=== PATIENT | female | born 1980 | race Caucasian/White ===

== ENCOUNTER 2021-11-11 23:38 | Emergency (ER) | payer SELFPAY ==
[2021-11-12 00:29] LABS: Urine Blood Trace-intact (Negative); Urine Glucose Negative (Negative); Urine Protein 3+ (Negative); Urine Specific Gravity >=1.030 (1.005-1.030); Urine pH 6.5 (5.0-7.0)
[2021-11-12] MEDS ORDERED: MORPHINE 4 MG/ML SYR ONE (00:34)
[2021-11-12] MEDS ORDERED: ONDANSETRON 4 MG/2 ML VIAL ONE (00:34)
[2021-11-12 00:55] LABS: Absolute Lymphocytes (CBC) 2.8 K/uL (0.7-4.9); Hematocrit 41.9 % (36.0-45.0); Lymphocytes % 22.8 % (15.3-44.8); MPV 8.4 fL (7.6-11.3); RBC Red Blood Cell Count 4.94 M/uL (3.86-4.86)
[2021-11-12 01:06] LABS: Albumin 3.4 g/dL (3.4-5.0); Bilirubin Total 0.3 mg/dL (0.2-1.0); Potassium 3.7 mmol/L (3.5-5.1)
--- NOTE | 2021-11-12 01:55 | ER ---
Nurse's Notes [facility] Name: Veronika Murrell Age: 41 yrs Sex: Female : 1980 Arrival Date: 11/11/2021 Time: 23:42 Bed 6 Private MD: Diagnosis: Kindey stones, mid and distal left ureter Presentation: 11/11 23:55 Chief complaint: Patient states: "Its my side, it has been on going for a while. I was tw5 at work and it went from not hurting to hurting, to hurting so bad that I threw up. It radiates to my back. Someone mentioned to me that it might be kidney stones.". Coronavirus screen: Vaccine status: Patient reports being unvaccinated. Ebola Screen: Patient negative for fever greater than or equal to 101.5 degrees Fahrenheit, and additional compatible Ebola Virus Disease symptoms Patient denies exposure to infectious person. Patient denies travel to an Ebola-affected area in the 21 days before illness onset. Initial Sepsis Screen: Does the patient meet any 2 criteria? No. Patient's initial sepsis screen is negative. Does the patient have a suspected source of infection? No. Patient's initial sepsis screen is negative. Risk Assessment: Do you want to hurt yourself or someone else? Patient reports no desire to harm self or others. Onset of symptoms was November 11, 2021 at 16:00. 23:55 Method Of Arrival: Ambulatory tw5 23:55 Acuity: MILLI 3 tw5 Triage Assessment: 23:57 General: Appears uncomfortable, obese, Behavior is calm, cooperative, appropriate for tw5 age. Pain: Complains of pain in left lower quadrant Pain radiates to left low back Pain currently is 10 out of 10 on a pain scale. GI: Reports nausea, vomiting. 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 Patient has never been vaccinated. - Social history:: Smoking status: Patient denies any tobacco usage or history of. Screenin/26 00:15 Abuse screen: Denies threats or abuse. Nutritional screening: No deficits noted. tw5 Tuberculosis screening: No symptoms or risk factors identified. Fall Risk Fall in past 12 months (25 points). No secondary diagnosis (0 pts). IV access (20 points). Ambulatory Aid- None/Bed Rest/Nurse Assist (0 pts). Gait- Normal/Bed Rest/Wheelchair (0 pts) Mental Status- Oriented to own ability (0 pts). Total Joe Fall Scale indicates No Risk (0-24 pts). Assessment: 00:15 General: Appears uncomfortable, Behavior is calm, cooperative. Pain: Complains of pain tw5 in left lower quadrant Pain radiates to left low back Pain currently is 10 out of 10 on a pain scale. Pain began On and off for past 6 months, pain started today at 6 PM Is episodic. GI: Abdomen is round non-distended, Reports nausea, vomiting, States "I vomited because the pain was so bad". Derm: Skin is pink, warm \\T\\ dry. Vital Signs: 11/11 23:55 Pulse 63; Resp 18; Temp 98(O); Pulse Ox 98% on R/A; Weight 109.32 kg; Height 5 ft. 4 tw5 in. (162.56 cm); Pain 10/10; 23:55 BP 173 / 115; tw5 11/12 00:23 BP 168 / 119; Pulse 64; Resp 17; Pulse Ox 98% on R/A; tw5 00:39 BP 141 / 85; Pulse 84; Resp 18; Pulse Ox 99% on R/A; tw5 02:39 BP 149 / 89; Pulse 68; Resp 16; Pulse Ox 98% on R/A; ll3 11/11 23:55 Body Mass Index 41.37 (109.32 kg, 162.56 cm) tw5 ED Course: 11/11 23:42 Patient arrived in ED. kz 23:57 Triage completed. tw5 23:57 Arm band placed on left wrist. tw5 11/12 00:04 Johnnie Montana MD is Attending Physician. kdr 00:15 Patient has correct armband on for positive identification. Bed in low position. Call tw5 light in reach. Side rails up X 1. 00:18 Inserted saline lock: 20 gauge in right antecubital area, using aseptic technique. tp1 Blood collected. 01:09 CT Stone Protocol In Process Unspecified. EDMS 02:07 Herminia Salmon, RN is Primary Nurse. ll3 02:38 No provider procedures requiring assistance completed. IV discontinued, intact, ll3 bleeding controlled, No redness/swelling at site. Pressure dressing applied. Administered Medications: 00:30 Drug: Zofran (Ondansetron) 4 mg Route: IVP; Site: right antecubital; tw5 00:56 Follow up: Response: No adverse reaction ll3 00:35 Drug: morphine 4 mg Route: IVP; Infused Over: 4 mins; Site: right antecubital; tw5 00:56 Follow up: Response: No adverse reaction; Marked relief of symptoms ll3 02:08 Drug: Rocephin - (cefTRIAXone) 1 grams Route: IVPB; Infused Over: 30 mins; Site: right ll3 antecubital; 02:40 Follow up: Response: No adverse reaction; IV Status: Completed infusion; IV Intake: [id number] Medication: 02:39 VIS not applicable for this client. ll3 Intake: 02:40 IV: 50ml; Total: 50ml. ll3 Outcome: 01:54 Discharge ordered by . kdr 02:38 Discharged to home ambulatory, with family. ll3 02:38 Condition: stable 02:38 Discharge instructions given to patient, family, Instructed on discharge instructions, follow up and referral plans. medication usage, Demonstrated understanding of instructions, follow-up care, medications, Prescriptions given X 4. 02:39 Patient left the ED. ll3 Addendum: 11/16/2021 07:30 Addendum: Culture Results: Positive urine culture. No further action required. Bacteria i w sensitive to prescribed antibiotic. Signatures: Dispatcher [employer] EDIL Johnnie Montana MD MD kdr Williams, Irene, RN RN iw Wood, Tiffany tw5 Herminia Salmon RN RN 3 Ilene Durbin 1 Sandra Peters
--- NOTE | 2021-11-12 01:55 | EDPHYS ---
Physician Documentation [facility] Name: Veronika Murrell Age: 41 yrs Sex: Female : 1980 Arrival Date: 11/11/2021 Time: 23:42 Bed 6 Private MD: ED Physician Johnnie Montana HPI: 11/12 01:50 This 41 yrs old Female presents to ER via Ambulatory with complaints of Flank Pain - kdr Left, Vomiting. 01:50 The patient complains of pain in the left mid back. left flank and groin. Onset: The kdr symptoms/episode began/occurred suddenly, just prior to arrival. Modifying factors: The symptoms are alleviated by nothing. the symptoms are aggravated by nothing. Severity of pain: At its worst the pain was moderate in the emergency department the pain has improved mildly. The patient has experienced similar episodes in the past, multiple times. The patient has not recently seen a physician. Patient has had intermittent left flank pain for over a year. She has not sought treatment prior to today.. 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 Patient has never been vaccinated. - Social history:: Smoking status: Patient denies any tobacco usage or history of. ROS: 11/12 01:50 Constitutional: Negative for fever, chills, and weight loss, Eyes: Negative for injury, kdr pain, redness, and discharge, Neck: Negative for injury, pain, and swelling, Cardiovascular: Negative for chest pain, palpitations, and edema, Respiratory: Negative for shortness of breath, cough, wheezing, and pleuritic chest pain, Abdomen/GI: Negative for abdominal pain, nausea, vomiting, diarrhea, and constipation, MS/Extremity: Negative for injury and deformity, Skin: Negative for injury, rash, and discoloration, Neuro: Negative for headache, weakness, numbness, tingling, and seizure activity. Psych: Negative for depression, anxiety, suicide ideation, homicidal ideation, and hallucinations, Allergy/Immunology: Negative for hives, rash, and allergies, Endocrine: Negative for neck swelling, polydipsia, polyuria, polyphagia, and marked weight changes, Hematologic/Lymphatic: Negative for swollen nodes, abnormal bleeding, and unusual bruising. Back: Positive for pain at rest, of the left mid back. Exam: 01:50 Constitutional: This is a well developed, well nourished patient who is awake, alert, kdr and in no acute distress. Head/Face: Normocephalic, atraumatic. Eyes: Pupils equal round and reactive to light, extra-ocular motions intact. Lids and lashes normal. Conjunctiva and sclera are non-icteric and not injected. Cornea within normal limits. Periorbital areas with no swelling, redness, or edema. Neck: Trachea midline, no thyromegaly or masses palpated, and no cervical lymphadenopathy. Supple, full range of motion without nuchal rigidity, or vertebral point tenderness. No Meningismus. Chest/axilla: Normal chest wall appearance and motion. Nontender with no deformity. No lesions are appreciated. Cardiovascular: Regular rate and rhythm with a normal S1 and S2. No gallops, murmurs, or rubs. Normal PMI, no JVD. No pulse deficits. Respiratory: Lungs have equal breath sounds bilaterally, clear to auscultation and percussion. No rales, rhonchi or wheezes noted. No increased work of breathing, no retractions or nasal flaring. Back: No spinal tenderness. No costovertebral tenderness. Full range of motion. Skin: Warm, dry with normal turgor. Normal color with no rashes, no lesions, and no evidence of cellulitis. MS/ Extremity: Pulses equal, no cyanosis. Neurovascular intact. Full, normal range of motion. Neuro: Awake and alert, GCS 15, oriented to person, place, time, and situation. Cranial nerves II-XII grossly intact. Motor strength 5/5 in all extremities. Sensory grossly intact. Cerebellar exam normal. Normal gait. Psych: Awake, alert, with orientation to person, place and time. Behavior, mood, and affect are within normal limits. 01:50 Abdomen/GI: Inspection: abdomen appears normal, obese Bowel sounds: normal, Palpation: soft, mild abdominal tenderness, in the posterior aspect of right lateral abdomen, anterior aspect of right lateral abdomen and right lower quadrant. Vital Signs: 11/11 23:55 Pulse 63; Resp 18; Temp 98(O); Pulse Ox 98% on R/A; Weight 109.32 kg; Height 5 ft. 4 tw5 in. (162.56 cm); Pain 10/10; 23:55 BP 173 / 115; tw5 11/12 00:23 BP 168 / 119; Pulse 64; Resp 17; Pulse Ox 98% on R/A; tw5 00:39 BP 141 / 85; Pulse 84; Resp 18; Pulse Ox 99% on R/A; tw5 02:39 BP 149 / 89; Pulse 68; Resp 16; Pulse Ox 98% on R/A; ll3 11/11 23:55 Body Mass Index 41.37 (109.32 kg, 162.56 cm) tw5 MDM: 01:50 Data reviewed: vital signs, nurses notes, lab test result(s), radiologic studies. kdr Counseling: I had a detailed discussion with the patient and/or guardian regarding: the historical points, exam findings, and any diagnostic results supporting the discharge/admit diagnosis, lab results, radiology results, the need for outpatient follow up. 01:54 Patient medically screened. [facility] 11/12 00:15 Order name: CBC with Diff; Complete Time: 01:37 kdr 11/12 00:15 Order name: CMP; Complete Time: 01:37 kdr 11/12 00:15 Order name: Lipase; Complete Time: 01:37 kdr 11/12 00:29 Order name: Urine Dipstick-Ancillary; Complete Time: 01:37 [facility] 11/12 00:55 Order name: Urine Microscopic Only ll3 11/12 00:15 Order name: IV Saline Lock; Complete Time: 00:15 kdr 11/12 00:15 Order name: Labs collected and sent; Complete Time: 00:15 kdr 11/12 00:15 Order name: Urine Dipstick-Ancillary (obtain specimen); Complete Time: 00:23 kdr 11/12 00:24 Order name: CT Stone Protocol kdr 11/12 02:22 Order name: Urine Culture EDDC 11/12 00:15 Order name: Urine Test (obtain specimen); Complete Time: 00:23 kdr Administered Medications: 00:30 Drug: Zofran (Ondansetron) 4 mg Route: IVP; Site: right antecubital; tw5 00:56 Follow up: Response: No adverse reaction ll3 00:35 Drug: morphine 4 mg Route: IVP; Infused Over: 4 mins; Site: right antecubital; tw5 00:56 Follow up: Response: No adverse reaction; Marked relief of symptoms ll3 02:08 Drug: Rocephin - (cefTRIAXone) 1 grams Route: IVPB; Infused Over: 30 mins; Site: right ll3 antecubital; 02:40 Follow up: Response: No adverse reaction; IV Status: Completed infusion; IV Intake: [id number] Disposition Summary: 11/12/21 01:54 Discharge Ordered Location: Home kdr Problem: an acute exacerbation kdr Symptoms: have improved kdr Condition: Stable kdr Diagnosis - Kindey stones, mid and distal left ureter kdr Followup: kdr - With: Private Physician - When: 2 - 3 days - Reason: If symptoms return, Further diagnostic work-up, Recheck today's complaints, Continuance of care, Re-evaluation by your physician Discharge Instructions: - Discharge Summary Sheet kdr - Kidney Stones, [id number] kdr Forms: - Medication Reconciliation Form kdr - Thank You Letter kdr - Antibiotic Education kdr - Prescription Opioid Use kdr Prescriptions: - Zofran 4 mg Oral Tablet - take 1 tablet by ORAL route every 12 hours As needed; 6 tablet; Refills: 0, kdr Product Selection Permitted - Tramadol 50 mg Oral Tablet - take 1 tablet by ORAL route every 8 hours as needed; 12 tablet; Refills: 0, kdr Product Selection Permitted - Bactrim DS 800-160 mg Oral Tablet - take 1 tablet by ORAL route every 12 hours for 3 days; 6 tablet; Refills: 0, kdr Product Selection Permitted - Flomax 0.4 mg Oral capsule - take 1 capsule by ORAL route once daily 1/2 hour following the same meal each kdr day; 10 capsule; Refills: 0, Product Selection Permitted Signatures: Dispatcher [employer] Johnnie Saenz MD MD kdr Ilene Blank tw5 Herminia Salmon RN RN ll3
[2021-11-12] MEDS ORDERED: NA CHLORIDE 0.9% 50 ML ONE (02:10)
[2021-11-12] MEDS ORDERED: CEFTRIAXONE 1000 MG/VIAL ONE (02:10)
[2021-11-12 02:19] LABS: Urine Bacteria 20-50 /HPF (<20); Urine RBC <5 /HPF (NONE SEEN)
[2021-11-12 02:48] VITALS: TEMP 98
[2021-11-12 02:52] VITALS: BP 149/89; O2SAT 98
--- NOTE | 2021-11-12 10:35 | RAD REPORT ---
EXAM DESCRIPTION: Stone Protocol 11/12/2021 1:24 AM CDT CLINICAL HISTORY: 41 years, Female, Flank pain, kidney stone suspected COMPARISON: None. TECHNIQUE: Multiple transaxial tomograms of the abdomen and pelvis were performed from the lung base s to the symphysis pubis 3 mm slice thickness at 3 mm interval reconstruction, without administration of IV and oral contrast. Multiplanar reformats in the sagittal and coronal plane were generated and reviewed. This exam was performed according to our departmental dose-optimization protocol, which includes auto mated exposure control, adjustment of the mA and/or kV according to patient size and/or use of iterat micah reconstruction technique. FINDINGS: The lack of IV and oral contrast limits evaluation of solid organs, subtle lesions cannot be excluded. The lung bases demonstrated presence of a posterior segment right lower lobe pulmonary nodule measuri ng 4 mm on image 3. Grossly the unopacified liver, pancreas, spleen and adrenal glands demonstrate to be within normal li mits, no significant focal lesions were identified. The gallbladder demonstrated presence of rim round densities within the fundus corresponding to cassandra lithiasis. No significant pericholecystic fluid/or wall thickening The left kidney is atrophic with findings suggesting duplex calyceal system. Several tiny obstructive calculi are identified within the mid/distal portion of the left ureter measuring 2 mm on image 79, 2.2 mm on image 95, 2.4 mm on image 120 image 94 and image 120. Tiny calculi are identified within th e left UVJ area measuring by 5.2 mm and 3.1 mm on axial image 150. The right kidney demonstrate to be unremarkable. There is no evidence for right hydronephrosis/or rig ht hydroureter. Grossly the unopacified stomach, small bowel and large bowel demonstrate to be within normal limits. There is no evidence for bowel dilatation/or free air. The appendix is normal. The urinary bladder demonstrate to be within normal limits. The uterus demonstrate to be within dhara l limits. No adnexal masses are identified. The aorta demonstrate to be within normal limits. There is no retroperitoneal lymphadenopathy. There is no evidence for ascites. The rest of the soft tiss ue demonstrate to be grossly unremarkable. 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 Several tiny obstructive calculi are identified within the mid/distal portion of the left ureter prem uring 2 mm. Tiny calculi are identified within the left UVJ area measuring by 5.2 mm and 3.1 mm. Cholelithiasis. 4 mm right solid pulmonary nodule. No routine follow-up imaging is recommended per Fleischner Society Guidelines. Electronically signed by: Axel Tejeda MD 11/12/2021 1:29 AM CDT Due to temporary technical issues with the PACS/Fluency reporting system, reports are being signed by the in house radiologist without review as a courtesy to ensure prompt reporting. The interpreting r adiologist is fully responsible for the content of the report.
== END 2021-11-12 02:39 | disposition home or self-care (01) ==
LOC: ER 23:38
DX: N20.2 Calculus of kidney with calculus of ureter (principal)
CPT/HCPCS: 36415; 74176; 76377; 80053; 81003; 81015; 83690; 85025; 87077; 87086; 87088; 87186; 96365; 96375; 99284; J2405

== ENCOUNTER 2022-04-12 14:38 | Emergency (ER) | payer SELFPAY ==
--- OUTSIDE RECORDS SUMMARY | 2022-04-12 14:44 | XMS REPORT | Continuity of Care Document ---
:1980 Author Organization [facility] t Address [address] [place] [address] Care Team Providers Name Role Phone Unavailable Unavailable Unavailable Problems This patient has no known problems. Allergies, Adverse Reactions, Alerts This patient has no known allergies or adverse reactions. Medications This patient has no known medications. Procedures This patient has no known procedures. Encounters Start End Encounter Admission Attending Care Care Encounter Source Date/Time Date/Time Type Type Clinicians Facility Department ID 2022-04-07 2022-04-07 Outpatient [facility] [id number] 11:06:05 11:06:05 [id number] [address] [place] Results Test Description Test Time Test Comments Results Result Comments Source HEMOGLOBIN A1c 2022-04-08 09:59:32 Test Item Value Reference Range Interpretation Comme nts HEMOGLOBIN A1c (test code = 04922) 5.5 % 4.2-5.6 CBC W/AUTO DIFF WITH [id number] 09:09:21 Test Item Value Reference Range Interpretation Comments WBC (test code = 7.5 K/UL 3.5-11.0 1001) RBC (test code = 4.74 M/UL 3.80-5.40 1002) HEMOGLOBIN (test code 13.0 G/DL 11.5-15.5 = 1003) HEMATOCRIT (test code 40.6 % 34.0-45.0 = 1004) MCV (test code = 85.7 fL 80.0-99.0 1005) MCH (test code = 27.4 PG 25.0-33.0 1006) MCHC (test code = 32.0 G/DL 31.0-36.0 1007) RDW (test code = 14.5 % 11.5-15.0 1038) NEUTROPHILS (test 60.9 % code = 1008) LYMPHOCYTES (test 31.1 % code = 1010) MONOCYTES (test code 4.8 % = 1011) EOSINOPHILS (test 2.1 % code = 1012) BASOPHILS (test code 0.8 % = 1013) IMMATURE GRANULOCYTES 0.3 % (test code = 1036) NUCLEATED RBCS (test 0.0 /100 WBC'S See_Comment [Aut omated code = 1065) message] The sy stem which generated this result transmitted reference range : 0.0. The refere nce range was not u sed to interpret th is result as normal/abnormal . PLATELET COUNT (test 326 K/UL 130-400 code = 1015) ABSOLUTE NEUTROPHILS 4.57 K/UL 1.50-7.50 (test code = 1066) ABSOLUTE LYMPHOCYTES 2.33 K/UL 1.00-4.00 (test code = 1067) ABSOLUTE MONOCYTES 0.36 K/UL 0.20-1.00 (test code = 1068) ABSOLUTE EOSINOPHILS 0.16 K/UL 0.00-0.50 (test code = 1040) ABSOLUTE BASOPHILS 0.06 K/UL 0.00-0.20 (test code = 1069) ABS IMMATURE 0.02 K/UL 0.00-0.10 GRANULOCYTES (test code = 1020) ABS NUCLEATED RBCS 0.00 K/UL 0.00-0.11 (test code = 43027) TSH, THIRD [id number] 03:51:20 Test Item Value Reference Range Interpretation Comments TSH, THIRD 3.900 UIU/ML 0.400-4.100 UNLESS OTHERW ISE GENERATION (test INDICATED, ALL TESTING code = 2821) PERFORMED [facility], [facility]. [address] [place] [id number] [place] [address] DIRECTOR: JOSIAS ALBERTS M.D. CLIA NUMBER [id number] CAP ACCREDITATION N O. [id number] LIPID [id number] 03:01:04 Test Item Value Reference Range Interpretation Comments CHOLESTEROL (test 167 MG/DL <200 code = 2210) TRIGLYCERIDES (test 137 MG/DL <150 code = 2232) HDL CHOLESTEROL (test 44 MG/DL >39 code = 2220) CALC LDL CHOL (test 99 MG/DL <100 NOTE: C ALCULATED LDL code = 2237) IS BASED ON GIAN-HUNTER METHOD WHICHINCLUDES ADJUSTABLE TRIGLYCERIDE:VL DL CHOLESTEROL RAT IO.THIS FACTOR VARIES B Y MEASURED TRIGLY CERIDE AND NON-HDLCHOL ESTEROL CONCENTRATIONS WITH INCREASED CALCU LATED LDL SEENIN HIGH ER TRIGLYCERIDE OR LOWER NON-HDL SPECIME NS. FOR MOREINFORMATION , SEE CLIENT ANNOUNCE MENT AT [email or web address] LDL/HDL 2.25 RATIO <3.22 (test code = 2238) COMPREHENSIVE METABOLIC [id number] 03:01:04 Test Item Value Reference Range Interpretation Comments GLUCOSE (test code = 94 MG/DL 70-99 2216) BUN (test code = 9 MG/DL 6-20 2207) CREATININE (test 1.04 MG/DL 0.60-1.30 code = 2214) eGFR (2020 CKD-EPI) 69 ML/MIN/1.73 >60 (test code = 50194) CALC BUN/CREAT (test 9 RATIO 6-28 code = 2235) SODIUM (test code = 143 MEQ/L 930-405 2424) POTASSIUM (test code 4.3 MEQ/L 3.5-5.4 = 2227) CHLORIDE (test code 106 MEQ/L 95-107 = 2215) CARBON DIOXIDE (test 26 MEQ/L 19-31 code = 2206) CALCIUM (test code = 9.3 MG/DL 8.5-10.5 2208) PROTEIN, TOTAL (test 6.9 G/DL 6.1-8.3 code = 2229) ALBUMIN (test code = 3.8 G/DL 3.5-5.2 2200) CALC GLOBULIN (test 3.1 G/DL 1.9-3.7 code = 2240) CALC A/G RATIO (test 1.2 RATIO 1.0-2.6 code = 2234) BILIRUBIN, TOTAL 0.4 MG/DL See_Comment [Automated message] (test code = 2207) The syste m which generated this result transmit terry reference range : <=1.2. The refe rence range was not u sed to interpret th is result as normal/abnormal . ALKALINE PHOSPHATASE 113 U/L 40-113 (test code = 2204) AST (test code = 18 U/L 9-40 2217) ALT (test code = 17 U/L 5-40 2218) TSH, THIRD [id number] 04:03:09 Test Item Value Reference Range Interpretation Comments TSH, THIRD GENERATION (test code 5.130 UIU/ML 0.400-4.100 H = 2821) FREE T4 (THYROXINE)2021-12-19 04:03:09 Test Item Value Reference Range Interpretation Comments FREE T4 1.21 NG/DL 0.80-1.90 UNLESS OTHERWI SE (THYROXINE) (test INDICATED, ALL TESTING code = 2823) PERFORMED [facility] [place], [facility]. [address] [place] [id number] [address]AN DIRECTOR: JOSIAS ALBERTS M.D. CLIA NUMBER [id number] CAP ACCREDITATION N O. [id number] TSH, THIRD [id number] 05:50:30 Test Item Value Reference Range Interpretation Comments TSH, THIRD 5.600 UIU/ML 0.400-4.100 H UNLESS OTHERWI SE GENERATION (test INDICATED, ALL TESTING code = 2821) PERFORMED [facility], [facility] [address] [place] [id number] [address]AN DIRECTOR: JOSIAS ALBERTS M.D. CLIA NUMBER [id number] CAP ACCREDITATION N O. [id number] LIPID [id number] 05:44:10 Test Item Value Reference Range Interpretation Comments CHOLESTEROL (test 163 MG/DL <200 code = 2210) TRIGLYCERIDES (test 109 MG/DL <150 code = 2232) HDL CHOLESTEROL (test 43 MG/DL >39 code = 2220) CALC LDL CHOL (test 99 MG/DL <100 NOTE: C ALCULATED LDL code = 2237) IS BASED ON GIAN-HUNTER METHOD WHICHINCLUDES ADJUSTABLE TRIGLYCERIDE:VL DL CHOLESTEROL RAT IO.THIS FACTOR VARIES B Y MEASURED TRIGLY CERIDE AND NON-HDLCHOL ESTEROL CONCENTRATIONS WITH INCREASED CALCU LATED LDL SEENIN HIGH ER TRIGLYCERIDE OR LOWER NON-HDL SPECIME NS. FOR MOREINFORMATION , SEE CLIENT ANNOUNCE MENT AT [email or web address] [email or web address] LDL/HDL 2.30 RATIO <3.22 (test code = 2238) COMPREHENSIVE METABOLIC [id number] 05:44:10 Test Item Value Reference Range Interpretation Comments GLUCOSE (test code = 96 MG/DL 70-99 2217) BUN (test code = 14 MG/DL 6-20 2207) CREATININE (test 1.03 MG/DL 0.60-1.30 code = 2213) eGFR (2020 CKD-EPI) 70 ML/MIN/1.73 >60 (test code = 12495) CALC BUN/CREAT (test 14 RATIO 6-28 code = 223) SODIUM (test code = 143 MEQ/L 979-061 6557) POTASSIUM (test code 4.1 MEQ/L 3.5-5.4 = 2227) CHLORIDE (test code 105 MEQ/L 95-107 = 2214) CARBON DIOXIDE (test 26 MEQ/L 19-31 code = 2205) CALCIUM (test code = 9.2 MG/DL 8.5-10.5 2208) PROTEIN, TOTAL (test 6.9 G/DL 6.1-8.3 code = 2228) ALBUMIN (test code = 3.8 G/DL 3.5-5.2 2200) CALC GLOBULIN (test 3.1 G/DL 1.9-3.7 code = 2239) CALC A/G RATIO (test 1.2 RATIO 1.0-2.6 code = 2233) BILIRUBIN, TOTAL 0.4 MG/DL See_Comment [Automated message] (test code = 2206) The syste m which generated this result transmit terry reference range : <=1.2. The refe rence range was not u sed to interpret th is result as normal/abnormal . ALKALINE PHOSPHATASE 111 U/L 40-113 (test code = 2203) AST (test code = 8 U/L 9-40 L 2217) ALT (test code = 11 U/L 5-40 2218) HEMOGLOBIN [id number] 03:46:54 Test Item Value Reference Range Interpretation Comments HEMOGLOBIN A1c (test code = 18180) 5.5 % 4.2-5.6 SARS-CoV-2 (COVID-19), RT-PCR/[id number] 13:27:48 Test Item Value Reference Interpretation Comments Range SARS-CoV-2 NEGATIVE SEE NOTE SARS-CoV-2 RNA NOT INTERPRETATION DETECTEDNegat micah (test code = 02389) results do not preclude SARS-C oV-2 infection and s hosloan notbe used as t he sole basis for patie nt management deci sions. Negativeresults must be combined wit h clinical observ ations, patient history ,and epidemiological information. Op timum specimen types and timingfor peak viral levels during infections caus ed by SARS-CoV-2 have notbeen determi avelino. Collection of m ultiple specimens or ty pes ofspecimens may be necessary to de tect virus. Improper specimencollect ion and handling, seque nce variability und er primers/probes, or organism presen t below the limit of de tection may lead to falsenegative r esults. Positive and ne gative predictive valu es oftesting are h ighly dependent on prevalence. Fal se negative testre sults are more likely when prevalence is h igh. SOURCE (test code = NASOPHARYNGEAL Note: [place] [address]) Mela Arelis Conyers l-Time RT-PCR. The exp ected result or refer ence range is NEGATI VE (Not Detected). For more information reg arding COVID-19 testin g to include clinicalinforma tion, methodology det ail, intended use, F DA authorization andrecommended fact sheets for niecy ents or healthcare prov iders, see NewTest Announcement: SARS-CoV-2 (COV ID-19) by NAAT at URL below (note,fact shee ts are provided by met hod given in report:https:// [email or web address] ians/cl ient-[email or web address] ions/ Alternatively, see downloadable PD F fact sheet at:https://[email or web address]. [email or web address]/[email or web address]-19-R T-PCR UNLESS OTHERWIS E INDICATED, ALL TESTING PERFORMED [facility], [facility]. [address] [place] [id number] [place] [address] DANISHA DIRECTOR: Humberto NELSONIA NUMBER [id number] CAP ACCREDITATION N O. [id number]
[2022-04-12 15:37] LABS: Urine Blood Trace-intact (Negative); Urine Glucose Negative (Negative); Urine Protein 3+ (Negative); Urine Specific Gravity >=1.030 (1.005-1.030); Urine pH 7.5 (5.0-7.0)
[2022-04-12] MEDS ORDERED: ONDANSETRON 4 MG/2 ML VIAL ONE (15:52)
[2022-04-12] MEDS ORDERED: NA CHLORIDE 0.9% 1,000 ML ONE (15:52)
[2022-04-12] MEDS ORDERED: MORPHINE 4 MG/ML SYR ONE (15:53)
[2022-04-12 15:55] LABS: Urine Crystals Unidentified Few /HPF (None Seen); Urine Mucus Slight /HPF (None Seen)
--- NOTE | 2022-04-12 16:10 | RAD REPORT ---
EXAM DESCRIPTION: CT - Stone Protocol - 04/12/2022 3:50 pm CLINICAL HISTORY: Abdominal pain. Left flank pain COMPARISON: 2020 TECHNIQUE: Computed axial tomography of the abdomen pelvis was obtained without oral or IV contrast. Lack of IV and oral contrast limits evaluation of solid organs, appendix, bowel, and vessels. Jarvis l reformatted images were obtained and reviewed. All CT scans are performed using dose optimization technique as appropriate and may include automated exposure control or mA/KV adjustment according to patient size. FINDINGS: Small left kidney. Cortical thinning. Moderate hydronephrosis. 2 millimeter calculus left UPJ. A couple small calculi within the left ureter. 3 millimeter calculus left UVJ. 2 millimeter calc ulus within the bladder. Stranding is present within the fat adjacent to the left renal pelvis and le ft ureter. A right renal calculus is not seen. Cholelithiasis. The liver, spleen, pancreas and adrenals appear grossly normal There is no evidence of diverticulitis. The appendix appears normal IMPRESSION: Small left kidney with moderate left hydronephrosis. Several calculi as described above. 3 millimeter calculus left UVJ.
[2022-04-12 16:20] LABS: Absolute Lymphocytes (CBC) 2.4 K/uL (0.7-4.9); Hematocrit 39.1 % (36.0-45.0); Lymphocytes % 24.8 % (15.3-44.8); MCV 83.7 fL (80-100); MPV 8.3 fL (7.6-11.3); RBC Red Blood Cell Count 4.67 M/uL (3.86-4.86)
[2022-04-12] MEDS ORDERED: CEFTRIAXONE 1000 MG/VIAL ONE (16:23)
[2022-04-12] MEDS ORDERED: TAMSULOSIN 0.4 MG SR CAP ONE (16:23)
[2022-04-12] MEDS ORDERED: MAGNESIUM SULFATE 1 gm IVPB 1 GM/100 ML BAG IV ONE (16:24)
[2022-04-12] MEDS ORDERED: NA CHLORIDE 0.9% 50 ML IV ONE (16:24)
[2022-04-12 16:30] LABS: Bilirubin Total 0.4 mg/dL (0.2-1.0); Potassium 3.7 mmol/L (3.5-5.1); Protein, Total 7.3 g/dL (6.4-8.2)
--- NOTE | 2022-04-12 17:32 | ER ---
Nurse's Notes [facility] Name: Veronika Murrell Age: 41 yrs Sex: Female : 1980 Arrival Date: 04/12/2022 Time: 14:41 Bed 28 Private MD: Diagnosis: Calculus of kidney with calculus of ureter-left;Other cholelithiasis without obstruction Presentation: 04/12 15:28 Chief complaint: Patient states: Left side flank pain that began this morning, states vg1 hx of kidney stones, also stated pain upon urination and vomiting. Coronavirus screen: Vaccine status: Patient reports being unvaccinated. Client denies travel out of the [place] in the last 14 days. Ebola Screen: Patient negative for fever greater than or equal to 101.5 degrees Fahrenheit, and additional compatible Ebola Virus Disease symptoms Patient denies exposure to infectious person. Initial Sepsis Screen: Does the patient meet any 2 criteria? No. Patient's initial sepsis screen is negative. Does the patient have a suspected source of infection? No. Patient's initial sepsis screen is negative. Risk Assessment: Do you want to hurt yourself or someone else? Patient reports no desire to harm self or others. Onset of symptoms was April 12, 2022. 15:28 Method Of Arrival: Ambulatory vg1 15:28 Acuity: MILLI 3 vg1 Triage Assessment: 15:30 General: Appears uncomfortable, obese, Behavior is calm, cooperative. Pain: Complains vg1 of pain in posterior aspect of left lateral abdomen Pain currently is 10 out of 10 on a pain scale. : Reports burning with urination. 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 - Social history:: Smoking status: Patient denies any tobacco usage or history of. Screenin:16 Abuse screen: Denies threats or abuse. Nutritional screening: No deficits noted. em6 Tuberculosis screening: No symptoms or risk factors identified. Fall Risk IV access (20 points). Total Joe Fall Scale indicates No Risk (0-24 pts). Assessment: 15:45 General: Behavior is cooperative. General: Behavior is cooperative. Pain: Complains of em6 pain in abdomen and posterior aspect of left lateral abdomen Pain currently is 10 out of 10 on a pain scale. Quality of pain is described as sharp. Neuro: Level of Consciousness is awake, alert, obeys commands, Oriented to person, place, time, situation, Denies headache. 15:45 Cardiovascular: Patient's skin is warm and dry. Respiratory: Airway is patent em6 Respiratory effort is even, unlabored, Respiratory pattern is regular, symmetrical. GI: Abdomen is non-distended, Abd is soft and non tender X 4 quads. : No signs and/or symptoms were reported regarding the genitourinary system. EENT: No signs and/or symptoms were reported regarding the EENT system. Derm: No signs and/or symptoms reported regarding the dermatologic system. Musculoskeletal: Range of motion: intact in all extremities. 16:45 Reassessment: Patient appears in no apparent distress at this time. No changes from em6 previously documented assessment. Patient and/or family updated on plan of care and expected duration. Pain level reassessed. Patient is alert, oriented x 3, equal unlabored respirations, skin warm/dry/pink. 17:46 Reassessment: Patient appears in no apparent distress at this time. No changes from em6 previously documented assessment. Patient and/or family updated on plan of care and expected duration. Pain level reassessed. Patient is alert, oriented x 3, equal unlabored respirations, skin warm/dry/pink. waiting on magnesium to finish for discharge. 18:45 Reassessment: Patient appears in no apparent distress at this time. No changes from em6 previously documented assessment. Patient and/or family updated on plan of care and expected duration. Pain level reassessed. Patient is alert, oriented x 3, equal unlabored respirations, skin warm/dry/pink. Vital Signs: 15:28 BP 186 / 113; Resp 17; Temp 97.9; Pulse Ox 98% ; Weight 113.4 kg; Height 5 ft. 4 in. vg1 (162.56 cm); Pain 10/10; 16:30 BP 154 / 81; Pulse 74; Resp 18; Pulse Ox 100% on R/A; em6 17:45 BP 141 / 88; Pulse 82; Resp 18; Pulse Ox 100% ; em6 18:04 BP 147 / 70; Pulse 72; Resp 18; Pulse Ox 100% ; em6 15:28 Body Mass Index 42.91 (113.40 kg, 162.56 cm) vg1 ED Course: 14:41 Patient arrived in ED. rg4 15:11 Bayron Murrell PA is PHCP. cp 15:11 Miguel Angel Walters MD is Attending Physician. cp 15:29 Triage completed. vg1 15:30 Arm band placed on. vg1 15:31 Jerilyn Honeycutt, RN is Primary Nurse. em6 15:52 CT Stone Protocol In Process Unspecified. EDMS 16:10 Inserted saline lock: 20 gauge in right antecubital area, using aseptic technique. em6 16:16 Bed in low position. Call light in reach. Side rails up X2. Pulse ox on. NIBP on. Warm em6 blanket given. 17:30 Karel Rodriguez MD is Referral Physician. cp 18:55 No provider procedures requiring assistance completed. IV discontinued, intact, em6 bleeding controlled, No redness/swelling at site. Pressure dressing applied. Administered Medications: 16:13 Drug: morphine 4 mg Route: IVP; Infused Over: 4 mins; Site: right antecubital; em6 17:00 Follow up: Response: No adverse reaction; RASS: Alert and Calm (0) em6 16:13 Drug: Zofran (Ondansetron) 4 mg Route: IVP; Site: right antecubital; em6 17:00 Follow up: Response: No adverse reaction em6 16:13 Drug: NS 0.9% 1000 ml Route: IV; Rate: 1 bolus; Site: right antecubital; em6 17:00 Follow up: IV Status: Completed infusion; IV Intake: 1000ml em6 16:33 Drug: Flomax (tamsulosin) 0.4 mg Route: PO; em6 17:00 Follow up: Response: No adverse reaction em6 16:33 Drug: Rocephin - (cefTRIAXone) 1 grams Route: IVPB; Infused Over: 30 mins; Site: right em6 antecubital; 17:10 Follow up: Response: No adverse reaction; IV Status: Completed infusion; IV Intake: 15kkin2 17:00 Drug: Magnesium Sulfate 1 grams Route: IVPB; Infused Over: 1 hrs; Site: right em6 antecubital; 18:31 Follow up: Response: No adverse reaction; IV Status: Completed infusion; IV Intake: em6 100ml Medication: 18:56 VIS not applicable for this client. em6 Intake: 17:00 IV: 1000ml; Total: 1000ml. em6 17:10 IV: 50ml; Total: 1050ml. em6 18:31 IV: 100ml; Total: 1150ml. em6 Outcome: 17:32 Discharge ordered by MD. cp 18:56 Discharged to home ambulatory, with significant other. em6 18:56 Condition: stable 18:56 Discharge instructions given to patient, significant other, Instructed on discharge instructions, follow up and referral plans. medication usage, Demonstrated understanding of instructions, follow-up care, medications, Prescriptions given X 4. 18:56 Patient left the ED. em6 Signatures: Dispatcher [employer] EDMS Bayron Murrell PA PA cp Garcia, Rubi rg4 Pat Gonzales RN RN vg1 Jerilyn Honeycutt RN RN em6 Corrections: (The following items were deleted from the chart) 17:47 17:46 Reassessment: waiting on magnesium to finish em6 em6 17:48 17:46 Reassessment: waiting on magnesium to finish for discharge em6 em6 17:51 17:48 BP 154 / 81; Pulse 74bpm; Resp 18bpm; Pulse Ox 100% RA; em6 em6
--- NOTE | 2022-04-12 17:32 | EDPHYS ---
Physician Documentation [facility] [place] Name: Veronika Murrell Age: 41 yrs Sex: Female : 1980 Arrival Date: 04/12/2022 Time: 14:41 Bed 28 Private MD: ED Physician Miguel Angel Walters HPI: 04/12 15:38 This 41 yrs old Female presents to ER via Ambulatory with complaints of Flank Pain. cp 15:38 The patient complains of pain in the left flank. Onset: The symptoms/episode cp began/occurred this morning. Associated signs and symptoms: Pertinent positives: dysuria, vomiting, Pertinent negatives: diarrhea, fever. Severity of pain: in the emergency department the pain is unchanged despite home interventions. 15:38 The patient has experienced similar episodes in the past, today's symptoms are similar, cp to when the patient was apparently diagnosed with kidney stone. [employer]: 15:30 LMP 02/2022 vg1 Historical: - Allergies: 15:30 No Known Allergies; vg1 - PMHx: 15:30 Hypertensive disorder; vg1 - PSHx: 15:30 Ligation of fallopian tube; vg1 - Immunization history:: Client reports having NOT received the Covid vaccine. - Social history:: Smoking status: Patient denies any tobacco usage or history of. ROS: 15:39 Constitutional: Negative for body aches, chills, fever, poor PO intake. cp 15:39 Respiratory: Negative for cough, shortness of breath, wheezing. 15:39 Abdomen/GI: Positive for vomiting. 15:39 Back: Positive for flank pain, on the left. 15:39 Eyes: Negative for injury, pain, redness, and discharge. cp 15:39 ENT: Negative for drainage from ear(s), ear pain, sore throat, difficulty swallowing, difficulty handling secretions. 15:39 Cardiovascular: Negative for chest pain. 15:39 Neuro: Negative for altered mental status, dizziness, headache, weakness. 15:39 All other systems are negative. cp Exam: 15:45 Constitutional: The patient appears in no acute distress, alert, awake, non-toxic, well cp developed, well nourished, obese. 15:45 Head/Face: Normocephalic, atraumatic. cp 15:45 Eyes: Periorbital structures: appear normal, Conjunctiva: normal, no exudate, no cp injection, Sclera: no appreciated abnormality, Lids and lashes: appear normal, bilaterally. 15:45 ENT: External ear(s): are unremarkable, Nose: is normal, Mouth: Lips: moist, Oral mucosa: pink and intact, moist, Posterior pharynx: Airway: no evidence of obstruction, patent. 15:45 Chest/axilla: Inspection: normal. cp 15:45 Cardiovascular: Rate: normal, Rhythm: regular. 15:45 Respiratory: the patient does not display signs of respiratory distress, Respirations: normal, no use of accessory muscles, no retractions, labored breathing, is not present, Breath sounds: are clear throughout, no decreased breath sounds, no stridor, no wheezing. 15:45 Abdomen/GI: Inspection: obese Bowel sounds: active, all quadrants, Palpation: soft, in all quadrants, moderate abdominal tenderness, in the posterior aspect of left lateral abdomen and anterior aspect of left lateral abdomen, rebound tenderness, is not appreciated, involuntary guarding, is not appreciated. 15:45 Back: pain, that is moderate, of the left mid back, ROM is painful, with all movement. 15:45 Skin: cellulitis, is not appreciated, no rash present. 15:45 Neuro: Orientation: to person, place \T\ time. Mentation: is normal, Motor: moves all fours, strength is normal, Sensation: is normal. Vital Signs: 15:28 BP 186 / 113; Resp 17; Temp 97.9; Pulse Ox 98% ; Weight 113.4 kg; Height 5 ft. 4 in. vg1 (162.56 cm); Pain 10/10; 16:30 BP 154 / 81; Pulse 74; Resp 18; Pulse Ox 100% on R/A; em6 17:45 BP 141 / 88; Pulse 82; Resp 18; Pulse Ox 100% ; em6 18:04 BP 147 / 70; Pulse 72; Resp 18; Pulse Ox 100% ; em6 15:28 Body Mass Index 42.91 (113.40 kg, 162.56 cm) vg1 MDM: 15:26 Patient medically screened. cp 17:32 Data reviewed: vital signs, nurses notes, lab test result(s), radiologic studies, CT cp scan. 17:32 Differential diagnosis: nephrolithiasis, pyelonephritis, UTI, pancreatitis. Counseling: cp I had a detailed discussion with the patient and/or guardian regarding: the historical points, exam findings, and any diagnostic results supporting the discharge/admit diagnosis, lab results, radiology results, the need for outpatient follow up, a urologist, to return to the emergency department if symptoms worsen or persist or if there are any questions or concerns that arise at home. Response to treatment: the patient's symptoms have markedly improved after treatment, and as a result, I will discharge patient. 04/12 15:26 Order name: CBC with Diff; Complete Time: 16:51 cp 04/12 16:51 Interpretation: Normal except: RDW 15.9. cp 04/12 15:26 Order name: CMP; Complete Time: 16:51 cp 04/12 16:51 Interpretation: Normal except: GFR 70; AST 11; ALB 3.0; GLOB 4.3; A/G 0.7. cp 04/12 15:26 Order name: Lipase; Complete Time: 16:51 cp 04/12 15:26 Order name: Urine Microscopic Only; Complete Time: 16:10 04/12 16:10 Interpretation: Normal except: UWBC >50; URBC 11-20. 04/12 15:38 Order name: Urine Dipstick-Ancillary; Complete Time: 15:38 EDMS 04/12 15:38 Interpretation: Reviewed. 04/12 15:40 Order name: CT Stone Protocol; Complete Time: 16:12 cp 04/12 16:07 Order name: Urine Culture EDLA 04/12 15:26 Order name: IV Saline Lock; Complete Time: 16:14 cp 04/12 15:26 Order name: Labs collected and sent; Complete Time: 16:14 cp 04/12 15:26 Order name: Urine Dipstick-Ancillary (obtain specimen); Complete Time: 15:48 cp 04/12 15:26 Order name: Urine Test (obtain specimen); Complete Time: 15:48 cp 04/12 16:15 Order name: Urine Strainer; Complete Time: 16:26 cp 04/12 16:52 Order name: PO challenge; Complete Time: 17:49 cp 04/12 17:11 Order name: Vital Signs: please update; Complete Time: 17:49 cp Administered Medications: 16:13 Drug: morphine 4 mg Route: IVP; Infused Over: 4 mins; Site: right antecubital; em6 17:00 Follow up: Response: No adverse reaction; RASS: Alert and Calm (0) em6 16:13 Drug: Zofran (Ondansetron) 4 mg Route: IVP; Site: right antecubital; em6 17:00 Follow up: Response: No adverse reaction em6 16:13 Drug: NS 0.9% 1000 ml Route: IV; Rate: 1 bolus; Site: right antecubital; em6 17:00 Follow up: IV Status: Completed infusion; IV Intake: 1000ml em6 16:33 Drug: Flomax (tamsulosin) 0.4 mg Route: PO; em6 17:00 Follow up: Response: No adverse reaction em6 16:33 Drug: Rocephin - (cefTRIAXone) 1 grams Route: IVPB; Infused Over: 30 mins; Site: right em6 antecubital; 17:10 Follow up: Response: No adverse reaction; IV Status: Completed infusion; IV Intake: [id number] 17:00 Drug: Magnesium Sulfate 1 grams Route: IVPB; Infused Over: 1 hrs; Site: right em6 antecubital; 18:31 Follow up: Response: No adverse reaction; IV Status: Completed infusion; IV Intake: em6 100ml Disposition Summary: 04/12/22 17:32 Discharge Ordered Location: Home cp Problem: new cp Symptoms: have improved cp Condition: Stable cp Diagnosis - Calculus of kidney with calculus of ureter - left cp - Other cholelithiasis without obstruction cp Followup: cp - With: Karel Rodriguez MD - When: 2 - 3 days - Reason: Recheck today's complaints Discharge Instructions: - Discharge Summary Sheet cp - Kidney Stones cp - Renal Colic cp - Cholelithiasis cp Forms: - Medication Reconciliation Form cp - Thank You Letter cp - Antibiotic Education cp - Prescription Opioid Use cp Prescriptions: - Ibuprofen 800 mg Oral Tablet - take 1 tablet by ORAL route every 8 hours As needed take with food; 30 tablet; cp Refills: 0, Product Selection Permitted - Zofran 4 mg Oral Tablet - take 1 tablet by ORAL route every 12 hours As needed; 20 tablet; Refills: 0, cp Product Selection Permitted - cefpodoxime 200 mg Oral Tablet - take 1 tablet by ORAL route every 12 hours with food; 14 tablet; Refills: 0, cp Product Selection Permitted - Tylenol-Codeine #3 300 mg-30 mg Oral - take 2 tablet by ORAL route every 6-8 hours; 16 tablet; Refills: 0, Product cp Selection Permitted Addendum: 04/15/2022 07:03 Co-signature as Attending Physician, Miguel Angel Walters MD. r n Signatures: Dispatcher [employer] EDMS Miguel Angel Walters MD MD rn Bayron Murrell PA PA cp Garcia, Victoria RN RN vg1 Jerilyn Honeycutt RN RN em6 Corrections: (The following items were deleted from the chart) 04/12 16:10 16:10 HYAL 0-5. cp cp 16:51 16:51 Normal except: GFR 70. cp cp
[2022-04-12 20:42] VITALS: TEMP 97.9
[2022-04-12 20:44] VITALS: O2SAT 100
[2022-04-12 20:46] VITALS: BP 147/70
== END 2022-04-12 18:56 | disposition home or self-care (01) ==
LOC: ER 14:38
DX: N20.2 Calculus of kidney with calculus of ureter (principal); K80.80 Other cholelithiasis without obstruction
CPT/HCPCS: 36415; 74176; 76377; 80053; 81003; 81015; 83690; 85025; 87086; 87088; 96365; 96375; 99284; J2405; J3475; J7030